=== PATIENT | female | born 1955 | race Caucasian/White ===

== ENCOUNTER 2018-12-05 13:01 | Emergency (ER) | payer SELFPAY ==
[2018-12-05 13:18] VITALS: BMI 24.2
--- NOTE | 2018-12-05 14:36 | C.PDOC ---
History Of Present Illness 63yo female, comes to ER reporting chest pain and epigastric abdominal pain which she states radiates to her throat. She reports "itching and tickling" sensation and feels as if something is stuck in there. Otherwise denies any fever, chills, shortness of breath, difficulty swallowing. No other complaints. Time Seen by Provider: 12/05/18 14:01 Chief Complaint (Nursing): Chest Pain History Per: Patient History/Exam Limitations: no limitations Onset/Duration Of Symptoms: Days Past Medical History Reviewed: Historical Data, Nursing Documentation, Vital Signs Vital Signs: Last Vital Signs Temp 98.1 F 12/05/18 13:18 Pulse 79 12/05/18 13:18 Resp 17 12/05/18 13:18 BP 150/85 12/05/18 13:18 Pulse Ox 99 12/05/18 13:18 - Medical History PMH: Hypercholesterolemia Surgical History: No Surg Hx Family History: States: No Known Family Hx - Social History Hx Alcohol Use: No Hx Substance Use: No - Immunization History Hx Tetanus Toxoid Vaccination: Yes Hx Influenza Vaccination: Yes Hx Pneumococcal Vaccination: Yes Review Of Systems Except As Marked, All Systems Reviewed And Found Negative. ENT: Positive for: Other (itching and tickling sensation in knee) Cardiovascular: Positive for: Chest Pain Gastrointestinal: Positive for: Abdominal Pain Physical Exam - Physical Exam Appears: Non-toxic, No Acute Distress Skin: Normal Color, Warm, No Rash Head: Atraumatic, Normacephalic Eye(s): bilateral: Normal Inspection Ear(s): Bilateral: Normal Oral Mucosa: Moist, No Trismus Tongue: Normal Appearing, No Swelling Throat: Normal, No Erythema, No Exudate, No Drooling Neck: Normal ROM, Supple Chest: Symmetrical, No Tenderness Cardiovascular: Rhythm Regular, No Friction Rub, No Murmur, No JVD Respiratory: Normal Breath Sounds Gastrointestinal/Abdominal: Normal Exam, Soft, No Tenderness Back: Normal Inspection Extremity: Normal ROM, No Swelling Neurological/Psych: Oriented x3, Normal Speech, Normal Motor Gait: Steady ED Course And Treatment - Laboratory Results Result Diagrams: 12/05/18 15:10 12/05/18 15:10 ECG: Interpreted By Me ECG Rhythm: Sinus Rhythm ECG Interpretation: Normal Rate From EC (bpm) O2 Sat by Pulse Oximetry: 99 (RA) Pulse Ox Interpretation: Normal - CT Scan/US CT neck Other Rad Studies (CT/US): Radiology Report Reviewed CT/US Interpretation: FINDINGS: NASOPHARYNX: Unremarkable. SUPRAHYOID NECK: There is a diffuse soft tissue swelling noted at the level of the palatine tonsil and oropharynx without definite evidence of discrete mass or abscess formation in this noncontrast study. INFRAHYOID NECK: There is thickening of right epiglottic fold and obliteration of the right vallecula and right piriform sinus noted. Mild thickening and asymmetry in the right false vocal cord noted. MASS: Diffuse soft tissue swelling without definite evidence of discrete mass in this noncontrast study. GLANDS: There is low-attenuation mass lesion in the left thyroid lobe measures 3.9 centimeter in the transverse diameter and 3.9 centimeter in the AP diameter. The parotid gland is heterogeneous and low attenuation. The submandibular salivary glands are also has low attenuation. LYMPH NODES: There are mildly enlarged level 2 lymphadenopathy in upper neck bilaterally. CERVICAL SPINE: No fracture or focal lesion. OTHER FINDINGS: None. IMPRESSION: Suboptimal evaluation without IV contrast administration. Diffuse soft tissue swelling at the oropharynx and at the level of the palatine tonsil noted. Mild soft tissue swelling also noted at the right aspect of the supraglottic larynx. Mildly enlarged bilateral level 2 lymph nodes in the upper neck. 3.9 centimeter low-attenuation mass at the left adrenal gland. Medical Decision Making Medical Decision [place] female with sore throat, cough Plan: -- Labs -- Toradol 15mg IV -- CT neck soft tissue -- CXR 1522 Labs reviewed, no clinically significant abnormalities 1645 CT reviewed, no acute findings Patient stable for d/c home, instructed to f/u with PMD in 2-3 days. On re-exam, the patient reports improvement of symptoms. Lungs are CTA, heart is RRR, abdomen is soft, non-tender and tolerating PO well. Ambulatory in the ED with steady gait. Follow up with the medical doctor within 1-2 days. return if worsened. Disposition - Disposition Referrals: Leydi Dumont MD [Staff Provider] - Disposition: HOME/ ROUTINE Disposition Time: 17:10 Condition: STABLE Additional Instructions: Follow up with the medical doctor within 1-2 days, return if worsened. Prescriptions: Azithromycin [Zithromax] 250 mg PO DAILY #6 tab Ibuprofen [Motrin] 1 tab PO TID PRN #30 tab PRN Reason: Pain Loratadine [Claritin] 10 mg PO DAILY #10 tab predniSONE [Prednisone] 20 mg PO BID #10 tab Instructions: Lymphadenitis, Viral Syndrome (DC) Forms: [employer] (Mongolian) - Clinical Impression Clinical Impression: Viral syndrome
[2018-12-05 15:18] LABS: BASO % 0.4 % (0.0-2.0); EOS # 0.1 K/uL (0.0-0.7); EOS % 0.9 % (0.0-4.0); HEMOGLOBIN 14.1 g/dL (11.0-16.0); LYMPH # 3.1 K/uL (1.0-4.3); MEAN CELL VOLUME 88.1 fL (81.0-99.0); MEAN CORPUSCULAR HEMOGLOBIN 29.6 pg (27.0-31.0); MEAN CORPUSCULAR HGB CONC 33.6 g/dL (33.0-37.0); MONO # 0.3 K/uL (0.0-0.8); MONO % 3.9 % (0.0-10.0); NEUT % 53.8 % (50.0-75.0); NRBC % 0.1 % (0.0-2.0); RBC 4.75 Mil/uL (3.80-5.20); RED CELL DISTRIBUTION WIDTH 13.5 % (11.5-14.5); WHITE BLOOD COUNT 7.5 K/uL (4.8-10.8)
[2018-12-05 15:30] LABS: ALB/GLOB RATIO 1.4 (1.0-2.1); ALBUMIN 4.6 g/dL (3.5-5.0); ALT/SGPT 25 U/L (9-52); AST/SGOT 26 U/L (14-36); BLOOD UREA NITROGEN 12 mg/dL (7-17); CALCIUM 9.3 mg/dl (8.6-10.4); GFR NON-AFRICAN AMERICAN > 60; LIPASE 67 U/L (23-300)
--- NOTE | 2018-12-05 15:56 | RAD ---
HISTORY: chest pain COMPARISON: None available. TECHNIQUE: Chest, one view. FINDINGS: LUNGS: No focal consolidation. Please note that chest x-ray has limited sensitivity for the detection of pulmonary masses. PLEURA: No significant pleural effusion identified. No definite pneumothorax . CARDIOVASCULAR: Heart size appears within normal limits. No significant atherosclerotic calcification present. OSSEOUS STRUCTURES: Degenerative changes. VISUALIZED UPPER ABDOMEN: Unremarkable. OTHER FINDINGS: None. IMPRESSION: No focal consolidation.
--- NOTE | 2018-12-05 16:22 | CT ---
Date of service: 12/05/2018 PROCEDURE: CT NECK WITHOUT CONTRAST HISTORY: throat pain, ?foreign body COMPARISON: None available. TECHNIQUE: CT of the neck without intravenous contrast. Coronal and sagittal reformats generated. Radiation dose: Total exam DLP = 418.03 mGy-cm. This CT exam was performed using one or more of the following dose reduction techniques: Automated exposure control, adjustment of the mA and/or kV according to patient size, and/or use of iterative reconstruction technique. FINDINGS: NASOPHARYNX: Unremarkable. SUPRAHYOID NECK: There is a diffuse soft tissue swelling noted at the level of the palatine tonsil and oropharynx without definite evidence of discrete mass or abscess formation in this noncontrast study. INFRAHYOID NECK: There is thickening of right epiglottic fold and obliteration of the right vallecula and right piriform sinus noted. Mild thickening and asymmetry in the right false vocal cord noted. MASS: Diffuse soft tissue swelling without definite evidence of discrete mass in this noncontrast study. GLANDS: There is low-attenuation mass lesion in the left thyroid lobe measures 3.9 centimeter in the transverse diameter and 3.9 centimeter in the AP diameter. The parotid gland is heterogeneous and low attenuation. The submandibular salivary glands are also has low attenuation. LYMPH NODES: There are mildly enlarged level 2 lymphadenopathy in upper neck bilaterally. CERVICAL SPINE: No fracture or focal lesion. OTHER FINDINGS: None. IMPRESSION: Suboptimal evaluation without IV contrast administration. Diffuse soft tissue swelling at the oropharynx and at the level of the palatine tonsil noted. Mild soft tissue swelling also noted at the right aspect of the supraglottic larynx. Mildly enlarged bilateral level 2 lymph nodes in the upper neck. 3.9 centimeter low-attenuation mass at the left adrenal gland.
[2018-12-05 17:11] VITALS: BP 146/72; PULSE 80; RESP 19; TEMP 98.3
[2018-12-09 13:53] VITALS: O2SAT 99
== END 2018-12-05 17:14 | disposition home or self-care (01) ==
LOC: C.ER 13:01
DX: B34.9 Viral infection, unspecified (principal)
CPT/HCPCS: 70490; 71045; 80053; 83690; 84484; 85025; 93005; 96374; 99285; J1885